=== PATIENT | male | born 1995 | race Two or more races ===

== ENCOUNTER 2016-11-15 15:07 | Emergency (ER) | payer SELFPAY ==
[~2016-11-15] VITALS: Ht 167.6 cm; Wt 81.6 kg
[2016-11-15 15:37] VITALS: BP 114/74
== END 2016-11-15 16:08 | disposition home or self-care (01) ==
LOC: ER 15:13
DX: M94.0 Chondrocostal junction syndrome [Tietze] (principal); F17.210 Nicotine dependence, cigarettes, uncomplicated
CPT/HCPCS: 71020